=== PATIENT | female | born 1975 ===

== ENCOUNTER 2017-01-01 07:07 | Day surgery (SDC) | payer OTHER ==
[2017-01-01] MEDS ORDERED: Lactated Ringer's 500 ML IV ONE (07:48)
[2017-01-01] MEDS ORDERED: Propofol 10 mg/ml Inj (20 ML) ONE (09:27)
[2017-01-01 09:54] VITALS: TEMP 97; O2SAT 100
[2017-01-01 10:10] VITALS: BP 117/59; PULSE 59; RESP 11
== END 2017-01-01 10:12 | disposition home or self-care (01) ==
LOC: H.ENDO 07:07
PROVIDERS: ATTEND Internal Medicine Gastroenterology
DX: K21.9 Gastro-esophageal reflux disease without esophagitis (principal); R10.13 Epigastric pain; K26.9 Duodenal ulcer, unspecified as acute or chronic, without hemorrhage or perforation

== ENCOUNTER 2017-09-03 07:10 | Day surgery (SDC) | payer OTHER ==
[2017-09-03 07:32] VITALS: BMI 23.0
[2017-09-03] MEDS ORDERED: Lactated Ringer's 1,000 ML IV ONE (07:43)
[2017-09-03] MEDS ORDERED: Propofol 10 mg/ml Inj (20 ML) ONE (08:42)
[2017-09-03] MEDS ORDERED: Lidocaine 2% MPF (5 ml) Inj ONE (08:43)
[2017-09-03 09:44] VITALS: BP 103/73; PULSE 70; RESP 18; TEMP 97; O2SAT 100
== END 2017-09-03 13:39 | disposition home or self-care (01) ==
LOC: H.ENDO 07:10
PROVIDERS: ATTEND Internal Medicine Gastroenterology
DX: K52.9 Noninfective gastroenteritis and colitis, unspecified (principal); R10.84 Generalized abdominal pain; K64.8 Other hemorrhoids; K57.30 Diverticulosis of large intestine without perforation or abscess without bleeding; K29.70 Gastritis, unspecified, without bleeding; K31.89 Other diseases of stomach and duodenum; R19.7 Diarrhea, unspecified
CPT/HCPCS: 43239; 45378; 88305; J2704; J7120